=== PATIENT | male | born 1965 | race Caucasian/White ===

== ENCOUNTER 2017-06-29 13:22 | Inpatient (IN) | payer BC ==
[2017-06-29] VITALS (10 sets, daily range): BP systolic 99–126; BP diastolic 61–77; PULSE 75–135; RESP 16–20; TEMP 98.1; O2SAT 98–100
[~2017-06-29 13:22] MED LIST: COLA100C PO; IBUP800T23 PO; ONDA8; PERC5TAB12 PO; TRAM50 PO
[2017-06-29] MEDS ORDERED: LOSA100T2 PO (14:55)
[2017-06-29] MEDS ORDERED: AMLO5TAB2 PO (14:55)
[2017-06-29] MEDS ORDERED: ASPI325T PO (14:55)
[2017-06-29] MEDS ORDERED: SODIUM CHLOR 0.9% 1000 ML INJ 1,000 ML IV ONE ×2 (15:15→17:15)
[2017-06-29 15:35] LABS: AUTOMATED NEUTROPHIL # 6.7 TH/MM3 (1.8-7.7); BASOPHIL % 0.5 % (0.0-2.0); EOSINOPHIL # 0.3 TH/MM3 (0-0.4); EOSINOPHIL % 2.8 % (0.0-4.0); HEMO FLAGS DIFF FINAL; LYMPH % 16.9 % (9.0-44.0); LYMPHOCYTE # 1.5 TH/MM3 (1.0-4.8); MEAN CELL VOLUME 86.2 FL (80.0-100.0); MEAN CORPUSCULAR HEMOGLOBIN 30.2 PG (27.0-34.0); MEAN CORPUSCULAR HGB CONC 35.1 % (32.0-36.0); MONO % 5.4 % (0.0-8.0); NEUT % 74.4 % (16.0-70.0); PLATELET COUNT 270 TH/MM3 (150-450); RED CELL DISTRIBUTION WIDTH 12.4 % (11.6-17.2)
[2017-06-29 15:43] LABS: CHLORIDE 105 MEQ/L (98-107); POTASSIUM 3.7 MEQ/L (3.5-5.1); SODIUM (NA) 140 MEQ/L (136-145)
[2017-06-29 15:47] LABS: ANION GAP 10 MEQ/L (5-15); BICARBONATE 25.1 MEQ/L (21.0-32.0); BLOOD UREA NITROGEN 14 MG/DL (7-18); MAGNESIUM 2.3 MG/DL (1.5-2.5)
[2017-06-29 15:48] LABS: PROTHROMBIN TIME - PATIENT 10.8 SEC (9.8-11.6)
[2017-06-29 15:50] LABS: ALT (GPT) 35 U/L (12-78); AST (GOT) 19 U/L (15-37); GLOMERULAR FILTRATION RATE 70 ML/MIN (>89)
[2017-06-29 15:51] LABS: TOTAL BILIRUBIN ADULT 0.7 MG/DL (0.2-1.0)
[2017-06-29 15:52] LABS: ALKALINE PHOSPHATASE 84 U/L (45-117); CREATINE KINASE 191 U/L (39-308)
--- NOTE | 2017-06-29 16:03 | RADRPT ---
EXAM DATE/TIME: 06/29/2017 15:44 [place] COMPARISON: CHEST SINGLE AP, February 22, 2016, 17:40. INDICATIONS : Irregular heart rate, sweating, nausea, chest tightness MEDICAL HISTORY : Hypertension. SURGICAL HISTORY : None. ENCOUNTER: Initial ACUITY: 1 day PAIN SCORE: 4/10 LOCATION: Bilateral chest FINDINGS: A single view of the chest demonstrates the lungs to be symmetrically aerated without evidence of mas s, infiltrate or effusion. The cardiomediastinal contours are unremarkable. Osseous structures are intact. CONCLUSION: 1. No acute cardiopulmonary disease. Rylan Kirk MD on June 29, 2017 at 16:01 Board Certified Radiologist. This report was verified electronically.
[2017-06-29] MEDS ORDERED: DILTIAZEM HCL 25 MG/5 ML VIAL IV ONE ×3 (16:30→17:30)
[2017-06-29 18:05] LABS: BLOOD, URINE NEG (NEG); GLUCOSE,URINE NEG (NEG); KETONE, URINE NEG (NEG); NITRITE,URINE NEG (NEG)
[2017-06-29 18:12] LABS: METHOD OF COLLECTION CATH; URINE COLOR YELLOW (YELLW/STRAW)
[2017-06-29 18:13] LABS: COMMENT (UR) CULT NOT INDICATED; CULTURE IF INDICATED CULT NOT INDICATED; SQUAMOUS EPITHELIAL CELL URINE 0-5 /hpf (0-5)
--- NOTE | 2017-06-29 18:14 | PD ---
HPI Chief Complaint: Dizziness Time Seen by Provider: 14:58 Travel History International Travel<30 days: No Contact w/Intl Traveler<30days: No Traveled to known affect area: No History of Present Illness HPI 52 y/o male presents with dizzy, palpitations, chest pain, and general ill feeling this started this afternoon. He denies concurrent history of this. He denies history of atrial fibrillation. He feels worse when he moves around and is feeling better here in the emergency department at rest. Quality is general ill feeling. Severity is all over. Duration is couple hours. PFSH Past Medical History Hx Anticoagulant Therapy: Yes (asa 81mg) Asthma: No Autoimmune Disease: No Heart Rhythm Problems: No Cancer: No Cardiovascular Problems: Yes (htn on meds) High Cholesterol: Yes Chest Pain: No Congestive Heart Failure: No COPD: No Diminished Hearing: Yes Endocrine: No GERD: No Genitourinary: No Hiatal Hernia: No Hypertension: Yes Immune Disorder: No Medical other: Yes (vertigo ) Musculoskeletal: No Neurologic: No Psychiatric: No Reproductive: No Respiratory: No Sleep Apnea: No Ulcer: No Tetanus Vaccination: < 5 Years Influenza Vaccination: No Past Surgical History Abdominal Surgery: No Cardiac Surgery: No Ear Surgery: No Endocrine Surgery: No Eye Surgery: No Genitourinary Surgery: No Gynecologic Surgery: No Oral Surgery: No Thoracic Surgery: No Social History Alcohol Use: No Tobacco Use: No Substance Use: No Allergies-Medications (Allergen,Severity, Reaction): Coded Allergies: No Known Allergies (Unverified , 06/29/17) Reported Meds & Prescriptions Reported Meds & Active Scripts Active Reported Amlodipine (Amlodipine Besylate) 5 Mg Tab 5 Mg PO DAILY Losartan-Hydrochlorothiazide 100-25 Mg Tab 1 Tab PO DAILY Aspirin 325 Mg Tab 325 Mg PO DAILY Review of Systems Except as stated in HPI: all other systems reviewed are Neg Physical Exam Narrative GENERAL: Well-nourished, well-developed patient. SKIN: Warm and dry. HEAD: Normocephalic and atraumatic. EYES: No injection or drainage. ENT: No nasal drainage noted. NECK: Supple, trachea midline. No meningeal signs CARDIOVASCULAR: irregular rate and rhythm RESPIRATORY: Breath sounds equal bilaterally. No accessory muscle use. GASTROINTESTINAL: Abdomen soft, non-tender, nondistended. EXTREMITIES: No edema. NEUROLOGICAL: Awake and alert. Motor and sensory grossly within normal limits. Normal speech. Data Data Last Documented VS Vital Signs Date Time Temp Pulse Resp B/P (MAP) Pulse Ox O2 Delivery O2 Flow Rate FiO2 06/29/17 17:01 128 20 101/65 (77) 98 Nasal Cannula 2.00 06/29/17 13:45 98.1 Orders Orders Electrocardiogram (06/29/17 15:09) Complete Blood Count With Diff (06/29/17 15:09) Comprehensive Metabolic Panel (06/29/17 15:09) Prothrombin Time / Inr (Pt) (06/29/17 15:09) Act Partial Throm Time (Ptt) (06/29/17 15:09) Lactic Acid Sepsis Protocol (06/29/17 15:09) Magnesium (Mg) (06/29/17 15:09) Phosphorus (Po4) (06/29/17 15:09) Lipase (06/29/17 15:09) Ckmb (Isoenzyme) Profile (06/29/17 15:09) Troponin I (06/29/17 15:09) Urinalysis - C+S If Indicated (06/29/17 15:09) Influenzae A/B Antigen (06/29/17 15:09) Blood Culture (06/29/17 15:09) Chest, Single Ap (06/29/17 15:09) Blood Glucose (06/29/17 15:09) Ecg Monitoring (06/29/17 15:09) Iv Access Insert/Monitor (06/29/17 15:09) Oximetry (06/29/17 15:09) Sodium Chlor 0.9% 1000 Ml Inj (Ns 1000 M (06/29/17 15:15) CKMB (06/29/17 15:28) CKMB% (06/29/17 15:28) Diltiazem Inj (Cardizem Inj) (06/29/17 16:30) Diltiazem Inj (Cardizem Inj) (06/29/17 17:15) Admit Order (Ed Use Only) (06/29/17 17:11) Sodium Chlor 0.9% 1000 Ml Inj (Ns 1000 M (06/29/17 17:15) Thyroid Stimulating Hormone (06/29/17 15:28) Labs Laboratory Tests Test 06/29/17 15:28 White Blood Count 9.0 TH/MM3 Red Blood Count 4.30 MIL/MM3 Hemoglobin 13.0 GM/DL Hematocrit 37.0 % Mean Corpuscular Volume 86.2 FL Mean Corpuscular Hemoglobin 30.2 PG Mean Corpuscular Hemoglobin Concent 35.1 % Red Cell Distribution Width 12.4 % Platelet Count 270 TH/MM3 Mean Platelet Volume 7.2 FL Neutrophils (%) (Auto) 74.4 % Lymphocytes (%) (Auto) 16.9 % Monocytes (%) (Auto) 5.4 % Eosinophils (%) (Auto) 2.8 % Basophils (%) (Auto) 0.5 % Neutrophils # (Auto) 6.7 TH/MM3 Lymphocytes # (Auto) 1.5 TH/MM3 Monocytes # (Auto) 0.5 TH/MM3 Eosinophils # (Auto) 0.3 TH/MM3 Basophils # (Auto) 0.0 TH/MM3 CBC Comment DIFF FINAL Differential Comment Prothrombin Time 10.8 SEC Prothromb Time International Ratio 1.0 RATIO Activated Partial Thromboplast Time 25.0 SEC Blood Urea Nitrogen 14 MG/DL Creatinine 1.10 MG/DL Random Glucose 119 MG/DL Total Protein 7.4 GM/DL Albumin 3.4 GM/DL Calcium Level 8.3 MG/DL Phosphorus Level 2.1 MG/DL Magnesium Level 2.3 MG/DL Alkaline Phosphatase 84 U/L Aspartate Amino Transf (AST/SGOT) 19 U/L Alanine Aminotransferase (ALT/SGPT) 35 U/L Total Bilirubin 0.7 MG/DL Sodium Level 140 MEQ/L Potassium Level 3.7 MEQ/L Chloride Level 105 MEQ/L Carbon Dioxide Level 25.1 MEQ/L Anion Gap 10 MEQ/L Estimat Glomerular Filtration Rate 70 ML/MIN Lactic Acid Level 1.8 mmol/L Total Creatine Kinase 191 U/L Creatine Kinase MB 2.0 NG/ML Troponin I LESS THAN 0.02 NG/ML Lipase 137 U/L MDM Medical Decision Making Medical Screen Exam Complete: Yes Emergency Medical Condition: Yes Medical Record Reviewed: Yes (past history confirmed) Interpretation(s) EKG shows atrial fibrillation at 150 without STEMI criteria or consecutive T- wave inversion CBC & BMP Diagram 06/29/17 15:28 Total Protein 7.4, Albumin 3.4, Calcium Level 8.3 L, Phosphorus Level 2.1 L, Magnesium Level 2.3, Alkaline Phosphatase 84, Aspartate Amino Transf (AST/SGOT) 19, Alanine Aminotransferase (ALT/SGPT) 35, Total Bilirubin 0.7 Last 24 hours Impressions Chest X-Ray 06/29/17 1509 Signed Impressions: Service Date/Time: Thursday, June 29, 2017 15:44 - CONCLUSION: 1. No acute cardiopulmonary disease. Rylan Kirk MD Differential Diagnosis SVT, anemia, renal failure, electrolyte abnormality, atrial fibrillation with RVR, UTI, URI, pneumonia.... Narrative Course Patient is in atrial fibrillation with RVR currently will give IV fluid bolus and dose with low-dose Cardizem given blood pressure and monitor Pressure has remained stable so Will repeat Cardizem bolus and discussed cardiology Patient updated and agrees to admission, patient's blood pressure dropped a little but heart rate has improved will place on Cardizem drip to maintain rate control, Critical Care Narrative Aggregate critical care time was 35 minutes. Time to perform other separately billable procedures was not included in the critical care time. My time did not include minutes spent treating any other patients simultaneously or on activities that did not directly contribute to the patient's treatment. The services I provided to this patient were to treat and/or prevent clinically significant deterioration that could result in: Hypotension, [place], I provided critical care services requiring my management, as noted below: Chart data review, documentation time, medication orders and management, vital sign assessments/reviewing monitor data, ordering and reviewing lab tests, ordering and interpreting/reviewing x-rays and diagnostic studies, care of the patient and discussion of the patient with the admitting physicians. Physician Communication Physician Communication Dr. Macias states to repeat bolus and place on drip Dr. Macias came to the department and states patient will need Lovenox 1 mg/ kg every 12 hours in addition to drip and routine echocardiogram dr archer agrees to admit Diagnosis Primary Impression: Atrial fibrillation with RVR Admitting Information Admitting Physician Requests: Admit Hilaria Lopez MD Jun 29, 2017 18:14
[2017-06-29] MEDS ORDERED: DILTIAZEM INJ 125 MG in SODIUM CHLORIDE 0.9% INJ 100 ML IV PRN (18:15)
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
[2017-06-29] MEDS ORDERED: SODIUM CHLORIDE 0.9% FLUSH 10 ML FLUSH IV FLUSH PRN (19:00)
[2017-06-29] MEDS ORDERED: DIGOXIN 0.5 MG/2 ML VIAL IV PUSH ONE (19:00)
[2017-06-29] MEDS ORDERED: ASPIRIN 325 MG TAB PO SCH (19:00)
--- NOTE | 2017-06-29 19:14 | EKG ---
Date Performed: 06/29/2017 Time Performed: 14:57:03 PTAGE: 52 years EKG: ATRIAL FIBRILLATION WITH RAPID VENTRICULAR RESPONSE MINIMAL ST DEPRESSION NO PREVIOUS TRACING DOCTOR: Herberth Torres Interpretating Date/Time 06/29/2017 19:13:16
[2017-06-29] MEDS: HEPARIN SODIUM - SQ 10,000 UNITS/ML VIAL SQ SCH (19:31)
[2017-06-29] MEDS: SODIUM CHLORIDE 0.9% FLUSH 10 ML FLUSH IV FLUSH SCH (21:00)
[2017-06-29 21:36] LABS: CREATINE KINASE 153 U/L (39-308)
[2017-06-29] MEDS: POTASSIUM PHOSPHATE/SODIUM PHOSPHATE 250 MG TAB PO SCH (23:06)
[2017-06-29] MEDS: DIGOXIN 0.5 MG/2 ML VIAL IV PUSH SCH (23:07)
[2017-06-30] VITALS (13 sets, daily range): BP systolic 113–137; BP diastolic 57–92; PULSE 57–89; RESP 10–19; TEMP 97.7–100; O2SAT 93–98
[2017-06-30] MEDS ORDERED: CHLORHEXIDINE GLUCONATE 2 % 1 PACK (2 CLOTHS)(extra cloths) TOPICAL PRN (02:15)
[2017-06-30] MEDS: HEPARIN SODIUM - SQ 10,000 UNITS/ML VIAL SQ SCH ×3 (04:04→19:58)
[2017-06-30] MEDS: DIGOXIN 0.5 MG/2 ML VIAL IV PUSH SCH (04:04)
[2017-06-30 04:18] LABS: HEMATOCRIT 34.6 % (39.0-51.0); MEAN CELL VOLUME 87.9 FL (80.0-100.0); MEAN CORPUSCULAR HEMOGLOBIN 30.4 PG (27.0-34.0); MEAN CORPUSCULAR HGB CONC 34.6 % (32.0-36.0); PLATELET COUNT 214 TH/MM3 (150-450); RED BLOOD COUNT 3.94 MIL/MM3 (4.50-5.90); RED CELL DISTRIBUTION WIDTH 13.6 % (11.6-17.2); REVIEW FLAG FINAL; WHITE BLOOD COUNT 6.4 TH/MM3 (4.0-11.0)
[2017-06-30 04:23] LABS: FREE T4 0.93 NG/DL (0.76-1.46)
[2017-06-30 04:35] LABS: POTASSIUM 3.7 MEQ/L (3.5-5.1)
[2017-06-30 04:39] LABS: CREATINE KINASE 143 U/L (39-308)
[2017-06-30] MEDS: POTASSIUM PHOSPHATE/SODIUM PHOSPHATE 250 MG TAB PO SCH ×3 (06:40→22:13)
--- NOTE | 2017-06-30 07:41 | PD.CARD.PN ---
Subjective Subjective Remarks The patient denies chest pain, lightheadedness, palpitations or any other cardiac symptoms, bleeding, GI symptoms. Telemetry reveals sinus rhythm. The patient was given intravenous digoxin and taken off his Cardizem drip without my knowledge. Echocardiogram is pending. Objective Medications Reviewed Vital Signs / I&O Vital Signs Date Time Temp Pulse Resp B/P (MAP) Pulse Ox O2 Delivery O2 Flow Rate FiO2 06/30/17 04:00 89 06/30/17 02:00 98.5 68 18 133/73 (93) 98 06/30/17 02:00 89 06/30/17 01:20 67 18 126/72 (90) 96 06/30/17 00:40 66 16 113/71 (85) 96 Room Air 06/29/17 23:45 81 18 126/77 (93) 99 Room Air 06/29/17 22:37 88 99/61 (74) 06/29/17 21:52 75 107/75 (86) 99 06/29/17 20:03 115 18 113/71 (85) 99 06/29/17 19:28 125 18 102/68 (79) 99 06/29/17 18:34 122 110/76 06/29/17 18:18 100 18 110/76 (87) 98 Nasal Cannula 2.00 06/29/17 17:01 128 20 101/65 (77) 98 Nasal Cannula 2.00 06/29/17 16:20 135 20 101/74 (83) 100 Nasal Cannula 2.00 06/29/17 15:37 98 Nasal Cannula 2.00 06/29/17 14:59 20 97 Nasal Cannula 2.00 06/29/17 13:45 98.1 75 16 111/72 (85) 98 I/O 06/29/17 06/29/17 06/29/17 06/30/17 06/30/17 06/30/17 07:00 15:00 23:00 07:00 15:00 23:00 Intake Total 2000 ml Output Total 700 ml Balance 1300 ml Intake IV Total 2000 ml Output Urine Total 700 ml Physical Exam GENERAL: Overweight ,well-nourished, well-developed patient in no apparent distress. SKIN: Warm and dry. NECK: JVD normal - less than or equal to 5 cm H20. CARDIOVASCULAR: Regular rate and rhythm without murmurs, gallops, or rubs. RESPIRATORY: Normal breath sounds - equal bilaterally. No accessory muscle use. No wheezes, rales or rubs. PERIPHERY: No cyanosis, or edema. Laboratory Laboratory Tests Test 06/29/17 15:28 06/29/17 17:30 06/29/17 21:08 06/30/17 01:45 White Blood Count 9.0 TH/MM3 Red Blood Count 4.30 MIL/MM3 Hemoglobin 13.0 GM/DL Hematocrit 37.0 % Mean Corpuscular Volume 86.2 FL Mean Corpuscular Hemoglobin 30.2 PG Mean Corpuscular Hemoglobin Concent 35.1 % Red Cell Distribution Width 12.4 % Platelet Count 270 TH/MM3 Mean Platelet Volume 7.2 FL Neutrophils (%) (Auto) 74.4 % Lymphocytes (%) (Auto) 16.9 % Monocytes (%) (Auto) 5.4 % Eosinophils (%) (Auto) 2.8 % Basophils (%) (Auto) 0.5 % Neutrophils # (Auto) 6.7 TH/MM3 Lymphocytes # (Auto) 1.5 TH/MM3 Monocytes # (Auto) 0.5 TH/MM3 Eosinophils # (Auto) 0.3 TH/MM3 Basophils # (Auto) 0.0 TH/MM3 CBC Comment DIFF FINAL Differential Comment Prothrombin Time 10.8 SEC Prothromb Time International Ratio 1.0 RATIO Activated Partial Thromboplast Time 25.0 SEC Blood Urea Nitrogen 14 MG/DL Creatinine 1.10 MG/DL Random Glucose 119 MG/DL Total Protein 7.4 GM/DL Albumin 3.4 GM/DL Calcium Level 8.3 MG/DL Phosphorus Level 2.1 MG/DL Magnesium Level 2.3 MG/DL Alkaline Phosphatase 84 U/L Aspartate Amino Transf (AST/SGOT) 19 U/L Alanine Aminotransferase (ALT/SGPT) 35 U/L Total Bilirubin 0.7 MG/DL Sodium Level 140 MEQ/L Potassium Level 3.7 MEQ/L Chloride Level 105 MEQ/L Carbon Dioxide Level 25.1 MEQ/L Anion Gap 10 MEQ/L Estimat Glomerular Filtration Rate 70 ML/MIN Lactic Acid Level 1.8 mmol/L Total Creatine Kinase 191 U/L 153 U/L Creatine Kinase MB 2.0 NG/ML Troponin I LESS THAN 0.02 NG/ML LESS THAN 0.02 NG/ML Lipase 137 U/L Free Thyroxine 0.93 NG/DL Thyroid Stimulating Hormone 3rd Gen 1.430 uIU/ML Urine Collection Type CATH Urine Color YELLOW Urine Turbidity CLEAR Urine pH 6.0 Urine Specific [place] 1.020 Urine Protein NEG mg/dL Urine Glucose (UA) NEG mg/dL Urine Ketones NEG mg/dL Urine Occult Blood NEG Urine Nitrite NEG Urine Bilirubin NEG Urine Leukocyte Esterase NEG Urine Squamous Epithelial Cells 0-5 /hpf Microscopic Urinalysis Comment CULT NOT INDICATED Nasal Screen MRSA (PCR) MRSA NOT DETECTED Test 06/30/17 03:21 White Blood Count 6.4 TH/MM3 Red Blood Count 3.94 MIL/MM3 Hemoglobin 12.0 GM/DL Hematocrit 34.6 % Mean Corpuscular Volume 87.9 FL Mean Corpuscular Hemoglobin 30.4 PG Mean Corpuscular Hemoglobin Concent 34.6 % Red Cell Distribution Width 13.6 % Platelet Count 214 TH/MM3 Mean Platelet Volume 7.5 FL Blood Urea Nitrogen 14 MG/DL Creatinine 0.94 MG/DL Random Glucose 99 MG/DL Calcium Level 8.1 MG/DL Sodium Level 142 MEQ/L Potassium Level 3.7 MEQ/L Chloride Level 108 MEQ/L Carbon Dioxide Level 27.0 MEQ/L Anion Gap 7 MEQ/L Estimat Glomerular Filtration Rate 84 ML/MIN Total Creatine Kinase 143 U/L Troponin I LESS THAN 0.02 NG/ML Digoxin Level 1.0 NG/ML Imaging Last 48 hours Impressions Chest X-Ray 06/29/17 1509 Signed Impressions: Service Date/Time: Thursday, June 29, 2017 15:44 - CONCLUSION: 1. No acute cardiopulmonary disease. Rylan Kirk MD Assessment and Plan Assessment and Plan Problems: Atrial fibrillation with rapid response Hypertension Probable sleep apnea Obesity Anemia Recommendations: Echocardiogram to assess ventricular and valvular function. I have gone over the options of anticoagulation with him. He is hypertensive and at present has one risk factor. After the discussion of the risks/benefits/ alternatives, we both feel we would lean towards anticoagulation with Eliquis. I will hold off for now given his anemia as this does need workup by the primary service. If there is no contraindication to anticoagulation, I would switch him from the aspirin to Eliquis 5 mg twice a day. Discontinue digoxin and start oral diltiazem. Hold other antihypertensives. Thyroid functions are normal. Weight loss He will need sleep apnea evaluation Outpatient SPECT nuclear if stable with follow-up in my office. One of my partners will see him tomorrow. I will order stool for occult blood and anemia workup and leave follow-up of this to the primary service. All questions were answered to him and his . Yasir Macias MD Jun 30, 2017 07:41
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
[2017-06-30 08:21] LABS: TRANSFERRIN IRON PROFILE 218 MG/DL (200-360)
[2017-06-30 08:46] LABS: HDL CHOLESTEROL 20.9 MG/DL (40.0-60.0)
[2017-06-30] MEDS: SODIUM CHLORIDE 0.9% FLUSH 10 ML FLUSH IV FLUSH SCH ×2 (09:00→19:58)
[2017-06-30] MEDS: ASPIRIN EC 81 MG TABEC PO SCH (09:17)
[2017-06-30] MEDS: DILTIAZEM-CD 240 MG CAP ER PO SCH (09:17)
[2017-06-30] MEDS: ATORVASTATIN 20 MG TAB PO SCH (10:34)
--- NOTE | 2017-06-30 14:20 | EKG ---
Date Performed: 06/30/2017 Time Performed: 00:47:28 PTAGE: 52 years EKG: Sinus rhythm NONSPECIFIC T-WAVE ABNORMALITY BORDERLINE ECG PREVIOUS TRACING : 06/29/2017 14.57 Compared to previous tracing, sinus rhythm has replaced atr ial fibrillation, heart rate has slowed. DOCTOR: Herberth Torres Interpretating Date/Time 06/30/2017 14:19:48
[2017-06-30 15:09] LABS: HEMOGLOBIN A1a 1.1 %; HEMOGLOBIN A1b 0.8 %; HEMOGLOBIN Ao 86.6 %; HEMOGLOBIN LA1C 1.5 %; HEMOGLOBIN P3 3.3 %
[2017-07-01] VITALS (12 sets, daily range): BP systolic 118–136; BP diastolic 72–82; PULSE 60–89; RESP 14–20; TEMP 98.1–98.4; O2SAT 93–96
[2017-07-01] MEDS: CHLORHEXIDINE GLUCONATE 2 % 1 PACK (2 CLOTHS)(taper/protocol) TOPICAL SCH (03:42)
[2017-07-01] MEDS: HEPARIN SODIUM - SQ 10,000 UNITS/ML VIAL SQ SCH ×3 (03:42→19:51)
[2017-07-01] MEDS: POTASSIUM PHOSPHATE/SODIUM PHOSPHATE 250 MG TAB PO SCH ×3 (06:00→22:01)
[2017-07-01] MEDS: ASPIRIN EC 81 MG TABEC PO SCH (08:38)
[2017-07-01] MEDS: DILTIAZEM-CD 240 MG CAP ER PO SCH (08:39)
[2017-07-01] MEDS: ATORVASTATIN 20 MG TAB PO SCH (08:39)
[2017-07-01] MEDS: SODIUM CHLORIDE 0.9% FLUSH 10 ML FLUSH IV FLUSH SCH ×2 (08:39→20:53)
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
[2017-07-01] MEDS ORDERED: PEG (High)/E-LYTE SOLN 4000 ML BTL PO ONE (16:00)
[2017-07-02] VITALS (8 sets, daily range): BP systolic 114–148; BP diastolic 56–83; PULSE 59–79; RESP 12–22; TEMP 97.6–98.5; O2SAT 92–96
[2017-07-02] MEDS: HEPARIN SODIUM - SQ 10,000 UNITS/ML VIAL SQ SCH (03:00)
[2017-07-02] MEDS: CHLORHEXIDINE GLUCONATE 2 % 1 PACK (2 CLOTHS)(taper/protocol) TOPICAL SCH (03:55)
[2017-07-02] MEDS: POTASSIUM PHOSPHATE/SODIUM PHOSPHATE 250 MG TAB PO SCH ×2 (06:48→14:23)
[2017-07-02] MEDS: ATORVASTATIN 20 MG TAB PO SCH (08:15)
[2017-07-02] MEDS: SODIUM CHLORIDE 0.9% FLUSH 10 ML FLUSH IV FLUSH SCH (08:15)
[2017-07-02] MEDS: ASPIRIN EC 81 MG TABEC PO SCH ×2 (08:15→08:17)
[2017-07-02] MEDS: DILTIAZEM-CD 240 MG CAP ER PO SCH (08:15)
[2017-07-02] MEDS ORDERED: PROPOFOL 200 MG/20 ML AMP IV ONE (09:54)
[2017-07-02] MEDS ORDERED: DO NOT ADM ANY ANTICOAGULANT DRUGS PRN (09:59)
[2017-07-02] MEDS ORDERED: PANTOPRAZOLE SOD 40 MG DELAYED RELEASE TAB PO SCH (10:00)
--- NOTE | 2017-07-02 10:12 | PD.PROCEDR ---
GI Procedure REFERRING PHYSICIAN Dr. Perez PROCEDURE PERFORMED EGD with biopsy followed by colonoscopy INDICATION FOR PROCEDURE Anemia, guaiac-positive stools PROCEDURE: The procedure, risks and benefits were discussed with Mr. Sainz and informed consent was obtained. Anesthesia sedated him with Diprivan. He was placed in the left lateral decubitus position. EGD: The Pentax videoscope was introduced through the oropharynx and advanced to the second portion of the duodenum under direct visualization. Retroflexion was performed in the stomach. FINDINGS: The esophagus this was unremarkable except for an irregular Z line this was biopsied The stomach there were some superficial erosions noted in the gastric body with some patchy erythema otherwise gastric mucosa was unremarkable and within normal limits biopsies were taken from the antrum The duodenum this was normal Colonoscopy: The Pentax videoscope was introduced through the rectum and advanced to the cecum where the ileocecal valve and appendiceal orifice were identified. Retroflexion was performed in the rectum. Colonic prep was excellent FINDINGS: Colonic withdrawal time greater than 6 minutes as the scope was slowly withdrawn colonic mucosa was carefully inspected this was noted to be unremarkable and within normal limits all the way through the patient was noted to have mild diverticulosis of the proximal transverse colon retroflexion in the rectum did reveal small size internal hemorrhoids rectal examination otherwise unremarkable ESTIMATED BLOOD LOSS: None SPECIMENS REMOVED: Esophageal and gastric COMPLICATIONS: None IMPRESSION: Irregular Z line Mild erosive gastritis Diverticulosis Small internal hemorrhoids PLAN: Await biopsies Recommend PPI Continue with current supportive care Advance diet as tolerated Okay for discharge from a GI standpoint Follow-up with GI post discharge Poncho Mir MD Jul 02, 2017 10:12
--- NOTE | 2017-07-02 11:25 | ECHRPT ---
Indication: HYPERTENSIVE HEART DISEASE CONCLUSIONS Normal left ventricular size. Mild concentric left ventricular hypertrophy. The left ventricular systolic function is grossly normal on limited imaging. The right ventricle was not well visualized. The interatrial septum not well visualized. The aortic root and proximal ascending aorta are not well visualized. No aortic valve regurgitation. No aortic valve stenosis. No tricuspid regurgitation. Normal estimated pulmonary pressures. The pulmonary valve is not well visualized. The inferior vena cava was not well visualized. BP: 133 / 73 HR: Rhythm: Sinus MEASUREMENTS (Male / Female) Normal Values Technical Quality:Technically difficult study 2D ECHO LV Diastolic Diameter PLAX 4.4 cm 4.2 - 5.9 / 3.9 - 5.3 cm LV Systolic Diameter PLAX 2.9 cm IVS Diastolic Thickness 1.2 cm 0.6 - 1.0 / 0.6 - 0.9 cm LVPW Diastolic Thickness 1.2 cm 0.6 - 1.0 / 0.6 - 0.9 cm LV Relative Wall Thickness 0.5 LVOT Diameter 2.3 cm Aortic Root Diameter 2.8 cm LA Systolic Diameter LX 3.3 cm 3.0 - 4.0 / 2.7 - 3.8 cm M-MODE AV Cusp Separation MM 2.0 cm DOPPLER AV Peak Velocity 123.0 cm/s AV Peak Gradient 6.1 mmHg AV Mean Gradient 4.0 mmHg AV Velocity Time Integral 21.5 cm LVOT Peak Velocity 66.2 cm/s LVOT Peak Gradient 1.8 mmHg LVOT Velocity Time Integral 10.7 cm AV Area Cont Eq vti 2.1 cm AV Area Cont Eq pk 2.2 cm Mitral E Point Velocity 48.5 cm/s Mitral A Point Velocity 73.1 cm/s Mitral E to A Ratio 0.7 LV E' Lateral Velocity 15.1 cm/s Mitral E to LV E' Lateral Ratio 3.2 LV E' Septal Velocity 11.6 cm/s Mitral E to LV E' Septal Ratio 4.2 PV Peak Velocity 102.0 cm/s PV Peak Gradient 4.2 mmHg FINDINGS LEFT VENTRICLE Normal left ventricular size. Mild concentric left ventricular hypertrophy. The left ventricular systolic function is grossly normal on limited imaging. Left ventricular diastolic function parameters are normal. RIGHT VENTRICLE The right ventricle was not well visualized. LEFT ATRIUM The left atrial size is normal. RIGHT ATRIUM The right atrial size is normal. ATRIAL SEPTUM The interatrial septum not well visualized. AORTA The aortic root and proximal ascending aorta are not well visualized. MITRAL VALVE Structurally normal mitral valve. No mitral valve stenosis or regurgitation. AORTIC VALVE No aortic valve regurgitation. No aortic valve stenosis. TRICUSPID VALVE No tricuspid regurgitation. Normal estimated pulmonary pressures. PULMONARY VALVE The pulmonary valve is not well visualized. VESSELS The inferior vena cava was not well visualized. PERICARDIUM No pericardial effusion. Baldomero Pierce MD (Electronically Signed) Final Date:02 July 2017 11:24
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
[2017-07-02] MEDS ORDERED: CARD240C6 PO (15:57)
[2017-07-02] MEDS ORDERED: APIX5TAB PO (15:57)
[2017-07-02] MEDS ORDERED: ATOR20TA15 PO (15:57)
[2017-07-02] MEDS ORDERED: PANT40TA3 PO (15:58)
[2017-07-02] MEDS ORDERED: APIXABAN 5 MG TABLET PO ONE (16:00)
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
--- NOTE | 2017-07-02 21:54 | PD.CARD.PN ---
Subjective Subjective Remarks Patient seen this morning No complaints, awaiting EGD/Cscope today Heart rates controlled Objective Medications Current Medications Sodium Chloride 1,000 ml @ 999 mls/hr BOLUS ONCE IV Last administered on 06/29 15:23; Start 06/29/17 at 15:15; Stop 06/29/17 at 16:15; Status DC Diltiazem HCl (Cardizem Inj) 5 mg ONCE ONCE IV Last administered on 06/29/17 16:25; Start 06/29/17 at 16:30; Stop 06/29/17 at 16:31; Status DC Diltiazem HCl (Cardizem Inj) 10 mg ONCE ONCE IV Last administered on 17:23; Start 06/29/17 at 17:15; Stop 06/29/17 at 17:16; Status DC Sodium Chloride 1,000 ml @ 999 mls/hr BOLUS ONCE IV Last administered on 06/29 17:23; Start 06/29/17 at 17:15; Stop 06/29/17 at 18:15; Status DC Diltiazem HCl (Cardizem Inj) 10 mg ONCE ONCE IV ; Start 06/29/17 at 17:30; Stop 06/29/17 at 17:31; Status DC Diltiazem HCl 125 mg/Sodium Chloride 125 ml @ 5 mls/hr TITRATE PRN IV tachycardia Last administered on 06/29/17 18:34; Start 06/29/17 at 18:15; Stop 06/30/17 at 01:08; Status DC Sodium Chloride (NS Flush) 2 ml UNSCH PRN IV FLUSH FLUSH AFTER USING IV ACCESS ; Start 06/29/17 at 19:00; Stop 07/02/17 at 19:31; Status DC Sodium Chloride (NS Flush) 2 ml BID IV FLUSH Last administered on 07/02/17 08: 15; Start 06/29/17 at 21:00; Stop 07/02/17 at 19:31; Status DC Digoxin (Lanoxin Inj) 0.5 mg NOW ONCE IV PUSH Last administered on 06/29/17 19:32; Start 06/29/17 at 19:00; Stop 06/29/17 at 19:02; Status DC Digoxin (Lanoxin Inj) 0.25 mg Q4H IV PUSH Last administered on 06/30/17 04:04 ; Start 06/29/17 at 23:00; Stop 06/30/17 at 03:01; Status DC Aspirin (Aspirin) 325 mg DAILY PO Last administered on 06/29/17 19:31; Start 06/29/17 at 19:00; Stop 06/30/17 at 07:38; Status DC Heparin Sodium (Porcine) (Heparin Inj) 5,000 units Q8H SQ Last administered on 07/01/17 19:51; Start 06/29/17 at 19:00; Stop 07/02/17 at 19:31; Status DC Potassium Phos/ Sodium Phos (K-Phos Neutral) 250 mg Q8HR PO Last administered on 07/02/17 14:23; Start 06/29/17 at 22:00; Stop 07/02/17 at 19:31; Status DC Miscellaneous Information Patient in critical care unit? Ass... [id number] .[id number] ; Start 06/30/17 at 02:15; Stop 07/02/17 at 19:31; Status DC Chlorhexidine Gluconate (Chlorhexidine 2% Cloth) 3 pack DAILY@04 TOPICAL Last administered on 07/02/17 03:55; Start 06/30/17 at 04:00; Stop 07/02/17 at 19:31 ; Status DC Chlorhexidine Gluconate (Chlorhexidine 2% Cloth) 3 pack UNSCH PRN TOPICAL HYGIENIC CARE; Start 06/30/17 at 02:15; Stop 07/02/17 at 19:31; Status DC Aspirin (Ecotrin Ec) 162 mg DAILY PO Last administered on 07/01/17 08:38; Start 06/30/17 at 09:00; Stop 07/02/17 at 19:31; Status DC Diltiazem HCl (Cardizem Cd) 240 mg DAILY PO Last administered on 07/02/17 08: 15; Start 06/30/17 at 09:00; Stop 07/02/17 at 19:31; Status DC Atorvastatin Calcium (Lipitor) 20 mg DAILY PO Last administered on 07/02/17 08 :15; Start 06/30/17 at 09:30; Stop 07/02/17 at 19:31; Status DC Polyethylene Glycol/ Electrolytes (Colyte Liq) 4,000 ml ONCE ONCE PO Last administered on 07/01/17 16:00; Start 07/01/17 at 16:00; Stop 07/01/17 at 16:01 ; Status DC Pantoprazole Sodium (Protonix) 40 mg DAILY PO Last administered on 07/02/17 11 :12; Start 07/02/17 at 10:00; Stop 07/02/17 at 19:31; Status DC Propofol (Diprivan 200 Mg/20 ml Inj) 300 mg STK-MED ONCE IV ; Start 07/02/17 at 09:54; Stop 07/02/17 at 10:08; Status DC Miscellaneous Information ALL NURSING DEPARTME... UNSCH PRN .XX SEE LABEL COMMENTS; Start 07/02/17 at 09:59; Stop 07/02/17 at 19:31; Status DC Apixaban (Eliquis) 5 mg ONCE ONCE PO Last administered on 07/02/17 16:39; Start 07/02/17 at 16:00; Stop 07/02/17 at 16:34; Status DC Vital Signs / I&O Vital Signs Date Time Temp Pulse Resp B/P (MAP) Pulse Ox O2 Delivery O2 Flow Rate FiO2 07/02/17 16:00 98.5 78 15 147/83 (104) 92 07/02/17 16:00 78 07/02/17 14:00 79 07/02/17 12:00 98.2 59 12 148/67 (94) 96 07/02/17 12:00 59 07/02/17 10:10 79 16 112/70 (84) 96 Room Air 07/02/17 10:00 80 16 118/72 (87) 96 Room Air 07/02/17 09:50 97.9 87 16 113/73 (86) 96 Room Air 07/02/17 08:00 97.6 68 17 114/56 (75) 94 07/02/17 08:00 68 07/02/17 06:00 70 07/02/17 04:00 97.9 62 14 120/82 (95) 96 07/02/17 04:00 62 07/02/17 02:00 74 07/02/17 00:00 98.0 74 22 145/82 (103) 96 07/02/17 00:00 74 07/01/17 22:00 85 I/O 07/01/17 07/01/17 07/01/17 07/02/17 07/02/17 07/02/17 07:00 15:00 23:00 07:00 15:00 23:00 Intake Total 720 ml 960 ml 1920 ml 400 ml Output Total 1250 ml 1300 ml 475 ml Balance -530 ml -340 ml 1445 ml 400 ml Intake Oral 720 ml 960 ml 1920 ml Other 400 ml Output Urine Total 1250 ml 1300 ml 475 ml # Voids 2 3 # Bowel Movements 1 1 4 Physical Exam GENERAL: NAD, AAOx3 SKIN: Warm and dry. HEAD: Atraumatic. Normocephalic. EYES: Pupils equal and round. No scleral icterus. No injection or drainage. ENT: No nasal bleeding or discharge. Mucous membranes pink and moist. NECK: Trachea midline. No JVD. CARDIOVASCULAR: Irregularly irregulay RESPIRATORY: No accessory muscle use. Clear to auscultation. Breath sounds equal bilaterally. GASTROINTESTINAL: Abdomen soft, non-tender, nondistended. Hepatic and splenic margins not palpable. MUSCULOSKELETAL: Extremities without clubbing, cyanosis, or edema. No obvious deformities. NEUROLOGICAL: Awake and alert. No obvious cranial nerve deficits. Motor grossly within normal limits. Five out of 5 muscle strength in the arms and legs. Normal speech. PSYCHIATRIC: Appropriate mood and affect; insight and judgment normal. Assessment and Plan Problem List: (1) Atrial fibrillation ICD Codes: I48.91 - Unspecified atrial fibrillation (2) Hypertension ICD Codes: I10 - Essential (primary) hypertension Status: Acute Assessment and Plan 1) Atrial fibrillation Currently controlled on Cardizem 240mg 2) EGD/Cscope showing no current bleed 3) Plan to start Eliquis 4) Follow up with Dr. Macias in the [place] office Plan for outpt stress test to rule out underlying CAD as a cause for Afib 5) Discussed with primary team, stable for discharge Leonel Cárdenas DO Jul 02, 2017 21:54
== END 2017-07-02 17:00 | disposition home or self-care (01) | DRG 309 ==
LOC: PHED 13:22 → PHEDA 17:13 → HIME 06-30 01:45
PROVIDERS: ADMIT Internal Medicine; ATTEND Internal Medicine
PROC: 0DJD8ZZ Inspection of Lower Intestinal Tract, Via Natural or Artificial Opening Endoscopic (ICD-10-PCS; 2017-07-02)
PROC: 0DB58ZX Excision of Esophagus, Via Natural or Artificial Opening Endoscopic, Diagnostic (ICD-10-PCS; principal; 2017-07-02 09:00)
PROC: 0DB78ZX Excision of Stomach, Pylorus, Via Natural or Artificial Opening Endoscopic, Diagnostic (ICD-10-PCS; 2017-07-02 09:00)
DX: I48.91 Unspecified atrial fibrillation (principal); K92.1 Melena; K22.8 Other specified diseases of esophagus; I10 Essential (primary) hypertension; E78.5 Hyperlipidemia, unspecified; E66.9 Obesity, unspecified; D64.9 Anemia, unspecified; K57.30 Diverticulosis of large intestine without perforation or abscess without bleeding; K64.8 Other hemorrhoids; E78.1 Pure hyperglyceridemia; H91.90 Unspecified hearing loss, unspecified ear; K29.60 Other gastritis without bleeding; Z79.82 Long term (current) use of aspirin
CPT/HCPCS: 71010; 80048; 80053; 80061; 80162; 81001; 82272; 82550; 82552; 82607; 82746; 83036; 83540; 83550; 83605; 83690; 83735; 84100; 84439; 84443; 84484; 85025; 85027; 85610; 85730; 87040; 87641; 87804; 88305; 88312; 93005; 93306; 96361; 96374; J1160; J1644; J7030